=== PATIENT | male | born 1980 | race Caucasian/White ===

== ENCOUNTER 2018-09-09 16:06 | Emergency (ER) | payer OTHER ==
[2018-09-09 16:30] VITALS: BMI 31.4
--- NOTE | 2018-09-09 16:45 | PDOC ---
Rapid Medical Evaluation Chief Complaint: Pain Time Seen by Provider: 09/09/18 16:35 Medical Evaluation: Allergies Allergy/AdvReac Type Severity Reaction Status Date / Time No Known Allergies Allergy Verified 09/09/18 16:26 Vital Signs Temp Pulse Resp BP Pulse Ox 98.2 F 66 16 114/71 98 09/09/18 16:27 09/09/18 16:27 09/09/18 16:27 09/09/18 16:27 09/09/18 16:27 09/09/18 16:35 I have performed a brief in-person evaluation of this patient. The patient presents with a chief complaint of: RUq since sunday- states was healily eating and drinking over weekend. Pertinent physical exam findings: pale, + tenderness to RUQ I have ordered the following: The patient will proceed to the ED for further evaluation.
--- NOTE | 2018-09-09 17:13 | PDOC ---
History of Present Illness - General Chief Complaint: Pain Stated Complaint: ABD PAIN, NAUSEA,HEADACHE Time Seen by Provider: 09/09/18 16:35 - History of Present Illness Initial Comments: 09/09/18 18:01 The patient is a 38 year old male with no significant PMH who presents for evaluation of abdominal pain. The patient reports a 3-4 day history of intermittent dull RUQ abdominal pain worse after eating associated with some nausea prompting his presentation to the ED for further evaluation. He denies similar symptoms in the past and otherwise denies fevers, chills, SOB, chest pain, vomiting, or changes with urination or bowel movements. Past History - Past Medical History Allergies/Adverse Reactions: Allergies Allergy/AdvReac Type Severity Reaction Status Date / Time No Known Allergies Allergy Verified 09/09/18 16:26 Home Medications: Ambulatory Orders Pantoprazole Sodium [Protonix -] 20 mg PO DAILY #20 tablet.ec 09/09/18 Simvastatin [Zocor -] 40 mg PO HS 09/09/18 Zolpidem Tartrate [Ambien] 5 mg PO HS PRN 09/09/18 COPD: No - Surgical History Abdominal Surgery: No - Suicide/Smoking/Psychosocial Hx Smoking Status: No Smoking History: Never smoked Number of Cigarettes Smoked Daily: 0 Substance Use Type: None Review of Systems - Review of Systems Comments:: 09/09/18 18:03 Constitutional: No fevers, chills, fatigue, malaise HEENT: No Rhinorrhea, nasal congestion, visual changes Cardiovascular: No chest pain, syncope, palpitations, lightheadedness Respiratory: No Cough, SOB, Hemoptysis, Gastrointestinal: Abdominal pain, Nausea. No Vomiting, Constipation, Diarrhea, Melena Genitourinary: No Dysuria, Frequency, Urgency, Hesitancy, Hematuria, Flank pain Musculoskeletal: No Myalgia, arthralgia Skin: No rashes, itching, bruising, pallor Neurologic: No Headache, Dizziness, Numbness, Weakness, or Tingling Psychiatric: No Hallucinations. No SI or HI *Physical Exam - Vital Signs Last Vital Signs Temp Pulse Resp BP Pulse Ox 98.2 F 66 16 114/71 98 09/09/18 16:27 09/09/18 16:27 09/09/18 16:27 09/09/18 16:27 09/09/18 16:27 - Physical Exam Comments: 09/09/18 18:03 General Appearance: Nourished. No Apparent Distress HEENT: No Pharyngeal Erythema, Tonsillar Exudate, Tonsillar Erythema Neck: No Cervical Lymphadenopathy Respiratory/Chest: Lungs Clear, Normal Breath Sounds. No Crackles, Rales, Rhonchi, Wheezing Cardiovascular: Regular Rhythm, Regular Rate. No Murmur, Gallops, Rubs Gastrointestinal/Abdominal: Normal Bowel Sounds, Soft. No Guarding, Rebound, Tenderness Musculoskeletal: No CVA Tenderness Extremity: Normal Capillary Refill Integumentary: Normal Color, Dry, Warm Neurologic: Fully Oriented, Alert, Normal Mood/Affect, Normal Response, ED Treatment Course - LABORATORY CBC & Chemistry Diagram: 09/09/18 18:30 09/09/18 18:30 Medical Decision Making - Medical Decision Making 09/09/18 18:04 The patient is a 38 year old male with no significant PMH who presents for evaluation of abdominal pain. Differential includes but is not limited to: Cholelithiasis, Cholecystitis, Pancreatitis, Gastritis, Infectious, Metabolic Derangement. Given the patient's history and physical exam, we will obtain a cbc, cmp, lipase, gallbladder us to evaluate further. We will treat the patient with iv fluids pepcid, tylenol and maalox and continue to monitor and reassess while here in the ED. 09/09/18 19:32 CBC, cmp, lipase are unremarkable. Gallbladder US is unremarkable as read by our radiologist. The patient reports improvement in his symptoms. We are comfortable discharging the patient home with primary care provider follow up on protonix. We discussed the results, plan, and return precautions with the patient who voiced understanding and is agreeable with the plan. *DC/Admit/Observation/Transfer Diagnosis at time of Disposition: Abdominal pain Qualifiers: Abdominal location: unspecified location Qualified Code(s): R10.9 - Unspecified abdominal pain - Discharge Dispostion Disposition: HOME Condition at time of disposition: Stable Decision to Admit order: No - Prescriptions Prescriptions: Pantoprazole Sodium [Protonix -] 20 mg PO DAILY #20 tablet.ec - Referrals Referrals: Dillon Thakur MD [Primary Care Provider] - - Patient Instructions Printed Discharge Instructions: DI for Gastritis Additional Instructions: Please return to the ER if you experience concerning or worsening symptoms including worsening difficulty breathing, weakness, or chest pain abdominal pain. Your lab and ultrasound results were normal here in the ER. We have sent a prescription to your pharmacy for protonix that you may use to help manage your symptoms at home. Please call to schedule a follow up appointment with your primary care provider within 2-3 days to discuss your ER visit and further management of your symptoms. - Post Discharge Activity
[2018-09-09] MEDS ORDERED: SODIUM CHLORIDE 1,000 ML IV STA (17:14)
[2018-09-09] MEDS ORDERED: ACETAMINOPHEN 1000 MG/100 ML VIAL (NON FORMULARY) IVPB ONE (17:14)
[2018-09-09] MEDS ORDERED: FAMOTIDINE 20 MG/50 ML IVPB 20 MG/50 ML MG IVPB ONE ×2 (17:14→18:30)
[2018-09-09] MEDS ORDERED: MAG HYDROX/AL HYDROX/SIMETH 30 ML UNIT-DOSE CUP PO ONE (17:14)
--- NOTE | 2018-09-09 17:21 | PDOC ---
Attending Attestation - HPI HPI: 09/09/18 18:16 The patient is a 38 year old male, with no significant past medical history, who presents to the ED complaining of abdominal pain for the past 4 days. He reports that his pain is localized in the right upper quadrant, ranging from mild to moderate, without radiation. He notes that he also is experiencing nausea with his chief complaint. The patient denies chest pain, shortness of breath, headache and dizziness. Denies fever, chills, vomiting, diarrhea or constipation. Allergies: none Past surgical history: None reported Social History: No alcohol, tobacco or drug use reported - Physicial Exam PE: 09/09/18 18:16 General Appearance: Nourished. No Apparent Distress HEENT: No Pharyngeal Erythema, Tonsillar Exudate, Tonsillar Erythema Neck: No Cervical Lymphadenopathy Respiratory/Chest: Lungs Clear, Normal Breath Sounds. No Crackles, Rales, Rhonchi, Wheezing Cardiovascular: Regular Rhythm, Regular Rate. No Murmur, Gallops, Rubs Gastrointestinal/Abdominal: Normal Bowel Sounds, Soft. No Guarding, Rebound, Tenderness Musculoskeletal: No CVA Tenderness Extremity: Normal Capillary Refill Integumentary: Normal Color, Dry, Warm Neurologic: Fully Oriented, Alert, Normal Mood/Affect, Normal Response <Reno Gómez - Last Filed: 09/09/18 18:23> - Resident Resident Name: Bentley Solorio - ED Attending Attestation I have performed the following: I have examined & evaluated the patient, The case was reviewed & discussed with the resident, I agree w/resident's findings & plan, Exceptions are as noted - Medical Decision Making 09/09/18 19:24 labs reviewed and unremarkable pt's symptoms improved with IV pepcid imp: gastritis plan PPI s and PCP follow up <Rosalind Wu - Last Filed: 09/09/18 19:26>
[2018-09-09] MEDS ORDERED: MAG HYDROX/AL HYDROX/SIMETH 30 ML UNIT-DOSE CUP ONE (18:30)
[2018-09-09] MEDS ORDERED: ACETAMINOPHEN INJECTION 100 ML IVPB ONE (18:30)
[2018-09-09 18:42] LABS: BASO % 0.6 % (0-2.0); EOS % 0.8 % (0-4.5); HEMATOCRIT 51.4 % (35.4-49); HEMOGLOBIN 16.8 GM/dL (11.7-16.9); LYMPH % 26.5 % (8-40); MCH 29.6 pg (25.7-33.7); MCHC 32.7 g/dl (32.0-35.9); MEAN CELL VOLUME 90.4 fl (80-96); MEAN PLT VOLUME 7.7 fl (7.5-11.1); MONO % 11.3 % (3.8-10.2); NEUT % 60.8 % (42.8-82.8); PLATELET COUNT 321 K/MM3 (134-434); RBC 5.68 M/mm3 (4.00-5.60); RDW 14.1 % (11.9-15.9); WHITE BLOOD COUNT 8.1 K/mm3 (4.0-10.0)
[2018-09-09 19:12] LABS: ALBUMIN 4.6 g/dl (3.4-5.0); ALK PHOS 83 U/L (45-117); ANION GAP 7 MMOL/L (8-16); BILIRUBIN,TOTAL 0.7 mg/dL (0.2-1); BLOOD UREA NITROGEN 11 mg/dL (7-18); CALCIUM 9.2 mg/dL (8.5-10.1); CHLORIDE 103 mmol/L (98-107); CO2 29 mmol/L (21-32); CREATININE 1.1 mg/dL (0.55-1.3); GLUCOSE,RANDOM 84 mg/dL (74-106); LIPASE 159 U/L (73-393); POTASSIUM 4.6 mmol/L (3.5-5.1); SGOT/AST 21 U/L (15-37); SGPT/ALT 56 U/L (13-61); SODIUM 140 mmol/L (136-145); TOT PROT 8.3 g/dl (6.4-8.2)
[2018-09-09 21:51] VITALS: BP 117/78; PULSE 68; TEMP 98
== END 2018-09-09 16:45 | disposition home or self-care (01) ==
LOC: JER 16:06
DX: K29.70 Gastritis, unspecified, without bleeding (principal)
CPT/HCPCS: 36415; 76705-TC; 80053; 83690; 85025; 99282-25

== ENCOUNTER 2021-03-10 06:08 | Emergency (ER) | payer OTHER ==
[2021-03-10 06:44] VITALS: BMI 27.3
[2021-03-10] MEDS ORDERED: FAMOTIDINE 20 MG/50 ML IVPB 20 MG/50 ML MG IVPB ONE ×2 (07:41→07:46)
[2021-03-10] MEDS ORDERED: MAG HYDROX/AL HYDROX/SIMETH -MYLANTA- ORAL SUSPENSION PO ONE (07:41)
[2021-03-10] MEDS ORDERED: SODIUM CHLORIDE 1,000 ML IV STA (07:41)
[2021-03-10] MEDS ORDERED: MAG HYDROX/AL HYDROX/SIMETH 30 ML UNIT-DOSE CUP ONE (07:46)
[2021-03-10 08:45] LABS: BASO % 0.2 % (0-2.0); EOS % 0.2 % (0-4.5); HEMATOCRIT 47.5 % (35.4-49); HEMOGLOBIN 16.2 GM/dL (11.7-16.9); MEAN CELL VOLUME 88.1 fl (80-96); MEAN PLT VOLUME 7.9 fl (7.5-11.1); MONO % 13.6 % (3.8-10.2); PLATELET COUNT 285 K/MM3 (134-434); RDW 14.1 % (11.9-15.9); WHITE BLOOD COUNT 9.2 K/mm3 (4.0-10.0)
[2021-03-10 08:51] LABS: PH,URINE 5.5 (5.0-8.0); URINE APPEARANCE CLEAR; URINE BILIRUBIN NEGATIVE (NEGATIVE); URINE COLOR YELLOW; URINE GLUCOSE (UA) NEGATIVE (NEGATIVE); URINE KETONE NEGATIVE (NEGATIVE); URINE LEUK ESTERASE NEGATIVE (NEGATIVE); URINE NITRITE NEGATIVE (NEGATIVE); URINE PROTEIN NEGATIVE (NEGATIVE); URINE UROBILINOGEN 0.2 mg/dL (0.2-1.0)
[2021-03-10 09:03] LABS: CALCIUM 9.3 mg/dL (8.5-10.1)
[2021-03-10 09:04] LABS: ALBUMIN 4.2 g/dl (3.4-5.0); BLOOD UREA NITROGEN 18.7 mg/dL (7-18)
[2021-03-10 09:08] LABS: BILIRUBIN,TOTAL 0.3 mg/dL (0.2-1)
[2021-03-10 09:10] LABS: CREATININE 1.2 mg/dL (0.55-1.3)
[2021-03-10 09:12] LABS: TOT PROT 7.8 g/dl (6.4-8.2)
[2021-03-10 09:54] VITALS: BP 103/68; PULSE 70; TEMP 97.1
== END 2021-03-10 09:56 | disposition home or self-care (01) ==
LOC: JER 06:08
PROC: 3E033NZ Introduction of Analgesics, Hypnotics, Sedatives into Peripheral Vein, Percutaneous Approach (ICD-10-PCS; principal; 2021-03-10)
PROC: 3E0337Z Introduction of Electrolytic and Water Balance Substance into Peripheral Vein, Percutaneous Approach (ICD-10-PCS; 2021-03-10)
DX: K52.9 Noninfective gastroenteritis and colitis, unspecified (principal); R10.84 Generalized abdominal pain
CPT/HCPCS: 36415; 76705-TC; 80053; 81003; 83690; 85025; 87086; 99285-25; C9803; U0003; U0005

== ENCOUNTER 2021-06-14 04:51 | Day surgery (SDC) | payer OTHER ==
[2021-06-10 12:04] VITALS: BMI 28.3
[2021-06-14 10:40] VITALS: TEMP 97.1
[2021-06-14 11:57] VITALS: BP 105/65; PULSE 62
== END 2021-06-14 11:50 | disposition home or self-care (01) ==
LOC: JASU-ENDO 04:51
PROVIDERS: ATTEND Internal Medicine Gastroenterology
PROC: 0DBL8ZX Excision of Transverse Colon, Via Natural or Artificial Opening Endoscopic, Diagnostic (ICD-10-PCS; 2021-06-14)
PROC: 0DBN8ZX Excision of Sigmoid Colon, Via Natural or Artificial Opening Endoscopic, Diagnostic (ICD-10-PCS; 2021-06-14)
PROC: 0DBB8ZX Excision of Ileum, Via Natural or Artificial Opening Endoscopic, Diagnostic (ICD-10-PCS; 2021-06-14)
PROC: 0DBM8ZX Excision of Descending Colon, Via Natural or Artificial Opening Endoscopic, Diagnostic (ICD-10-PCS; 2021-06-14)
PROC: 0DBH8ZX Excision of Cecum, Via Natural or Artificial Opening Endoscopic, Diagnostic (ICD-10-PCS; principal; 2021-06-14 10:00)
DX: R19.7 Diarrhea, unspecified (principal); K64.8 Other hemorrhoids
CPT/HCPCS: 88305-TC

== ENCOUNTER 2021-06-21 04:37 | Day surgery (SDC) | payer OTHER ==
[2021-06-16 15:04] VITALS: BMI 28.3
[2021-06-21 10:49] VITALS: TEMP 97.4
[2021-06-21 11:25] VITALS: BP 113/74; PULSE 68
== END 2021-06-21 11:56 | disposition home or self-care (01) ==
LOC: JASU-ENDO 04:37
PROVIDERS: ATTEND Internal Medicine Gastroenterology
PROC: 0DB78ZX Excision of Stomach, Pylorus, Via Natural or Artificial Opening Endoscopic, Diagnostic (ICD-10-PCS; 2021-06-21)
PROC: 0DB98ZX Excision of Duodenum, Via Natural or Artificial Opening Endoscopic, Diagnostic (ICD-10-PCS; principal; 2021-06-21 10:15)
DX: R19.7 Diarrhea, unspecified (principal)
CPT/HCPCS: 88305-TC

== ENCOUNTER 2021-07-22 13:15 | Emergency (ER) | payer OTHER ==
[2021-07-22 13:24] VITALS: BP 135/82; PULSE 82; TEMP 98.4; BMI 29.7
[2021-07-22] MEDS ORDERED: HIV POST EXPOSURE PROPHYLAXIS KIT NR ONE (13:28)
[2021-07-22] MEDS ORDERED: HIV POST EXPOSURE PROPHYLAXIS KIT PO ONE (13:58)
== END 2021-07-22 14:09 | disposition home or self-care (01) ==
LOC: JERFT 13:15
DX: S61.439A Puncture wound without foreign body of unspecified hand, initial encounter (principal); W46.1XXA Contact with contaminated hypodermic needle, initial encounter
CPT/HCPCS: 99283-25

== ENCOUNTER 2021-11-16 21:47 | Emergency (ER) | payer OTHER ==
[2021-11-16 22:29] VITALS: BP 133/88; PULSE 104; TEMP 99.1; BMI 28.1
[2021-11-16] MEDS ORDERED: ACETAMINOPHEN 500 MG TABLET (FP) PO ONE (23:27)
[2021-11-16] MEDS ORDERED: ACETAMINOPHEN 325 MG TABLET (FP) ONE (23:57)
== END 2021-11-17 01:18 | disposition home or self-care (01) ==
LOC: JER 21:47
DX: U07.1 COVID-19 (principal)
CPT/HCPCS: 71046-TC-FY; 87651; 87804; 99284-25

== ENCOUNTER 2022-10-23 14:40 | Emergency (ER) | payer OTHER ==
[2022-10-23 14:49] VITALS: BP 123/63; PULSE 75; RESP 18; TEMP 98.4; BMI 26.6
[2022-10-23] MEDS ORDERED: KETOROLAC TROMETHAMINE 30 MG/1 ML VIAL ONE (15:46)
[2022-10-23] MEDS ORDERED: KETOROLAC TROMETHAMINE 30 MG/1 ML VIAL IM ONE (15:46)
== END 2022-10-23 15:50 | disposition home or self-care (01) ==
LOC: JERFT 14:40
PROC: 3E0233Z Introduction of Anti-inflammatory into Muscle, Percutaneous Approach (ICD-10-PCS; principal; 2022-10-23)
DX: M25.562 Pain in left knee (principal)
CPT/HCPCS: 73562-TC-LT-FY; 99284-25

== ENCOUNTER 2022-11-15 20:46 | Emergency (ER) | payer OTHER ==
[2022-11-15 21:08] VITALS: BP 133/77; PULSE 91; RESP 18; TEMP 98.4; BMI 26.6
[2022-11-15 21:26] LABS: URINE APPEARANCE CLEAR; URINE BILIRUBIN NEGATIVE (NEGATIVE); URINE COLOR YELLOW; URINE GLUCOSE (UA) NEGATIVE (NEGATIVE); URINE KETONE NEGATIVE (NEGATIVE); URINE LEUK ESTERASE NEGATIVE (NEGATIVE); URINE NITRITE NEGATIVE (NEGATIVE); URINE PROTEIN NEGATIVE (NEGATIVE); URINE UROBILINOGEN 0.2 mg/dL (0.2-1.0)
[2022-11-15] MEDS ORDERED: KETOROLAC TROMETHAMINE 15 MG/ML VIAL IM ONE (21:43)
[2022-11-15] MEDS ORDERED: LIDOCAINE 5% TOPICAL PATCH TP ONE (21:43)
[2022-11-15] MEDS ORDERED: KETOROLAC TROMETHAMINE 30 MG/1 ML VIAL IM ONE (22:05)
[2022-11-15] MEDS ORDERED: LIDOCAINE 5% TOPICAL PATCH ONE (22:15)
[2022-11-15] MEDS ORDERED: KETOROLAC TROMETHAMINE 30 MG/1 ML VIAL ONE (22:15)
[2022-11-15 23:25] LABS: BASO % 0.9 % (0-2.0); EOS % 0.2 % (0-4.5); HEMOGLOBIN 16.7 GM/dL (11.7-16.9); LYMPH % 31.3 % (8-40); MCH 29.3 pg (25.7-33.7); MCHC 32.8 g/dl (32.0-35.9); MEAN CELL VOLUME 89.4 fl (80-96); MEAN PLT VOLUME 7.6 fl (7.5-11.1); MONO % 12.4 % (3.8-10.2); NEUT % 55.2 % (42.8-82.8); PLATELET COUNT 344 10^3/uL (134-434); RDW 14.3 % (11.9-15.9); WHITE BLOOD COUNT 9.2 K/mm3 (4.0-10.0)
[2022-11-15 23:57] LABS: ALBUMIN 4.9 g/dl (3.4-5.0); BLOOD UREA NITROGEN 20.2 mg/dL (7-18); CALCIUM 9.9 mg/dL (8.5-10.1)
[2022-11-16] LABS: CREATININE 1.3 mg/dL (0.55-1.3)
[2022-11-16 00:02] LABS: BILIRUBIN,TOTAL 0.5 mg/dL (0.2-1); TOT PROT 8.8 g/dl (6.4-8.2)
[2022-11-16] MEDS ORDERED: LIDOCAINE PATCH REMOVAL MC SCH (10:00)
== END 2022-11-16 00:37 | disposition home or self-care (01) ==
LOC: JER 20:46
PROC: 3E023GC Introduction of Other Therapeutic Substance into Muscle, Percutaneous Approach (ICD-10-PCS; principal; 2022-11-15)
DX: S29.012A Strain of muscle and tendon of back wall of thorax, initial encounter (principal); X50.9XXA Other and unspecified overexertion or strenuous movements or postures, initial encounter
CPT/HCPCS: 36415; 71046-TC-FY; 80053; 81003; 84484; 85025; 87086; 93005; 93010; 99285-25

== ENCOUNTER 2023-01-27 15:35 | Emergency (ER) | payer OTHER ==
[2023-01-27 16:08] VITALS: BP 106/79; RESP 18; TEMP 98.6; BMI 25.7
[2023-01-27 17:32] LABS: BASO % 0.8 % (0-2.0); EOS % 0.2 % (0-4.5); HEMATOCRIT 49.3 % (35.4-49); HEMOGLOBIN 16.3 GM/dL (11.7-16.9); LYMPH % 22.4 % (8-40); MCH 28.8 pg (25.7-33.7); MEAN CELL VOLUME 87.3 fl (80-96); MEAN PLT VOLUME 8.1 fl (7.5-11.1); MONO % 13.3 % (3.8-10.2); NEUT % 63.3 % (42.8-82.8); PLATELET COUNT 325 10^3/uL (134-434); RBC 5.65 M/mm3 (4.00-5.60); RDW 14.3 % (11.9-15.9); WHITE BLOOD COUNT 7.3 K/mm3 (4.0-10.0)
[2023-01-27 17:54] LABS: CALCIUM 10.5 mg/dL (8.5-10.1)
[2023-01-27 17:55] LABS: ALBUMIN 4.6 g/dl (3.4-5.0); BLOOD UREA NITROGEN 17.5 mg/dL (7-18)
[2023-01-27 17:58] LABS: CREATININE 1.1 mg/dL (0.55-1.3)
[2023-01-27 18:00] LABS: BILIRUBIN,TOTAL 0.3 mg/dL (0.2-1); TOT PROT 8.5 g/dl (6.4-8.2)
[2023-01-27 18:33] VITALS: PULSE 85
== END 2023-01-27 18:30 | disposition home or self-care (01) ==
LOC: JER 15:35
DX: F41.9 Anxiety disorder, unspecified (principal); R10.13 Epigastric pain
CPT/HCPCS: 36415; 80053; 83690; 85025; 99283-25

== ENCOUNTER 2023-10-02 02:48 | Emergency (ER) | payer OTHER ==
[2023-10-02 02:58] VITALS: BP 118/77; PULSE 71; RESP 18; TEMP 98.5; BMI 25.8
== END 2023-10-02 04:48 | disposition home or self-care (01) ==
LOC: JER 02:48
DX: H72.92 Unspecified perforation of tympanic membrane, left ear (principal)
CPT/HCPCS: 99283-25

== ENCOUNTER 2025-07-16 06:31 | Day surgery (SDC) | payer OTHER ==
[2025-07-03 14:20] VITALS: BMI 26.4
[2025-07-16 07:21] VITALS: TEMP 97.8
[2025-07-16 09:15] VITALS: BP 114/76; PULSE 75; RESP 14
== END 2025-07-16 09:35 | disposition home or self-care (01) ==
LOC: JASU-ENDO 06:31
PROVIDERS: ATTEND Internal Medicine Gastroenterology
PROC: 0DBP8ZX Excision of Rectum, Via Natural or Artificial Opening Endoscopic, Diagnostic (ICD-10-PCS; principal; 2025-07-16 08:00)
DX: Z12.11 Encounter for screening for malignant neoplasm of colon (principal); D12.8 Benign neoplasm of rectum; K64.8 Other hemorrhoids
CPT/HCPCS: 88305-TC